=== PATIENT | female | born 1970 | race Caucasian/White ===

== ENCOUNTER 2019-08-08 22:13 | Emergency (ER) | payer OTHER ==
[~2019-08-08] VITALS: Ht 165.1 cm; Wt 52.2 kg
[2019-08-08 22:50] VITALS: BP 115/72
--- NOTE | 2019-08-08 23:32 | NUR ---
Patient discharged to home in stable condition. Written and verbal after care instructions given. Patient verbalizes understanding of instruction. Pt ambulatory with a steady gait
== END 2019-08-08 23:33 | disposition home or self-care (01) ==
LOC: ER 22:17
DX: L98.8 Other specified disorders of the skin and subcutaneous tissue (principal); L30.9 Dermatitis, unspecified; Z88.1 Allergy status to other antibiotic agents; Z88.8 Allergy status to other drugs, medicaments and biological substances

== ENCOUNTER 2019-08-14 00:01 | Emergency (ER) | payer OTHER ==
[~2019-08-14] VITALS: Ht 165.1 cm; Wt 52.2 kg
--- NOTE | 2019-08-14 00:16 | NUR ---
CALLED PT TO BE TRIAGED, NO ANSWER
--- NOTE | 2019-08-14 00:25 | NUR ---
BIBS FOR C/O EPIGASTRIC PAIN
[2019-08-14] MEDS ORDERED: LIDOCAINE VISCOUS 2% UD 15 ML UDC ONE (00:34)
[2019-08-14] MEDS ORDERED: ONDANSETRON HCL/PF 4 MG/2 ML VIAL ONE (00:34)
[2019-08-14] MEDS ORDERED: MAG HYDROX/AL HYDROX/SIMETH 30 ML UDC ONE (00:34)
[2019-08-14] MEDS: ONDANSETRON HCL/PF 4 MG/2 ML VIAL IVP ONE (00:45)
[2019-08-14] MEDS: MAG HYDROX/AL HYDROX/SIMETH 30 ML UDC PO ONE (00:45)
[2019-08-14] MEDS: LIDOCAINE VISCOUS 2% UD 15 ML UDC MM ONE (00:45)
[2019-08-14] MEDS: IV NS 0.9% 1,000 ML BAG IV ONE (00:45)
--- NOTE | 2019-08-14 00:45 | NUR ---
NS 1000ML GIVEN THROUGH RAC 20G PIV. END TIME: [id number]
--- NOTE | 2019-08-14 02:10 | NUR ---
IV removed. Catheter intact and site benign. Pressure and 4x4 applied to site. No bleeding noted.Patient discharged to home in stable condition. RX AND Written and verbal after care instructions given. Patient verbalizes understanding of instruction.
[2019-08-14 02:13] VITALS: BP 128/81
== END 2019-08-14 02:13 | disposition home or self-care (01) ==
LOC: ER 00:05
DX: K52.9 Noninfective gastroenteritis and colitis, unspecified (principal); K20.0 Eosinophilic esophagitis; Z88.1 Allergy status to other antibiotic agents; Z88.8 Allergy status to other drugs, medicaments and biological substances
CPT/HCPCS: 96361; 96374; 99283; J2405; J7030

== ENCOUNTER 2019-08-21 00:04 | Emergency (ER) | payer OTHER ==
[~2019-08-21] VITALS: Ht 160 cm; Wt 65.8 kg
[2019-08-21 00:14] VITALS: BP 133/87
== END 2019-08-21 00:41 | disposition home or self-care (01) ==
LOC: ER 00:08
DX: R21 Rash and other nonspecific skin eruption (principal); K20.0 Eosinophilic esophagitis; Z88.1 Allergy status to other antibiotic agents; Z88.8 Allergy status to other drugs, medicaments and biological substances